=== PATIENT | female | born 1950 | race Caucasian/White ===

== ENCOUNTER 2023-04-20 11:53 | Outpatient (CLI) | payer MEDICARE, OTHER, SELFPAY | END 2023-04-20 11:54 | disposition home or self-care (01) | PROVIDERS: Visit Provider Registered Nurse | DX: R30.0 Dysuria (principal); N39.0 Urinary tract infection, site not specified; N30.01 Acute cystitis with hematuria | CPT/HCPCS: 87086; 87186 ==

== ENCOUNTER 2023-08-18 02:03 | Day surgery (SDC) | payer MEDICARE, OTHER, SELFPAY ==
[2023-08-18] VITALS (23 sets, daily range): BP systolic 93–167; BP diastolic 49–84; PULSE 69–94; RESP 14–20; TEMP 36.4–37.8; O2SAT 91–100; BMI 32.5
--- NOTE | 2023-08-18 02:32 | CRLHL7_ITS ---
For Patients: As a result of the Century Cures Act, medical imaging exams and procedure reports are released immediately into your electronic medical record. You may view this report before your referring provider. If you have questions, please contact your health care provider. INDICATION: Lower abdominal pain, suspect diverticulitis TECHNIQUE: CT abdomen and pelvis acquired with 108 cc Isovue 370 IV contrast. COMPARISON: None. FINDINGS: Lower chest: Partially visualized patchy and reticular opacities. Hepatobiliary: No acute abnormality appreciated. Spleen: Unremarkable. Pancreas: Unremarkable. Adrenal glands: Unremarkable. Kidneys: No acute parenchymal abnormality appreciated. No calculi. No hydronephrosis. Bowel: No obstruction. The appendix is dilated and hyperemic and demonstrates adjacent inflammatory stranding. No other focal perienteric or pericolonic stranding appreciated. Small hiatal hernia. Vascular: No acute abnormality appreciated. Lymph nodes: Prominent right lower quadrant nodes. Peritoneum: Small volume free fluid. No organized abscess. No free air. : No acute abnormality appreciated. Soft tissues: No acute abnormality appreciated. Bones: No acute abnormality appreciated. IMPRESSION: 1. Acute uncomplicated appendicitis. 2. Partially visualized patchy and reticular opacities in the lung bases. Findings may represent chronic scarring or fibrotic process, and correlation with any prior cross-sectional imaging of the chest would be recommended. If none is available, a CT of the chest when clinically appropriate may be considered for further evaluation. 3. Small hiatal hernia. Please note that all CT scans at this facility use dose modulation, iterative reconstruction, and/or weight-based dosing when appropriate to reduce radiation dose to as low as reasonably achievable. Dictated by Chris Thomson MD @ 08/18/2023 3:56:15 AM (Electronically Signed)
--- NOTE | 2023-08-18 02:36 | ED.GENADULT ---
HPI - General Adult General Chief complaint: Abdominal Pain Stated complaint: Abdominal Pain/Chest pain Time Seen by Provider: 08/18/23 02:05 Source: patient and family Mode of arrival: ambulatory Limitations: no limitations History of Present Illness HPI narrative: 73-year-old female presents the emergency department with a day and half of lower abdominal pain. Has a history of colitis, no prior abdominal surgeries. Reports pain is a little more in the suprapubic area, radiates right and left and superiorly as well. It is accompanied by nausea but no vomiting. No bloody stools. Reports her last colonoscopy was 3 years ago, normal. She is uncertain what type of colitis she has. She is visiting from [place] and we do not have access to her records. Denies any abdominal trauma, no pelvic pain. She is postmenopausal. Try taking some Tylenol yesterday afternoon which did temporarily improve her symptoms but no long-term relief. Tried taking some Pyridium this evening with no significant improvement. No dysuria. No hematuria, no history of kidney stones. No recent changes to medications. No prior history of similar symptoms. Past medical history notable for bipolar disorder and colitis. She is not a particularly good historian on this. I review her medications that come with her and I suspect she also has hypertension, she is on several mood stabilizers and antidepressants. She takes low-dose aspirin and also oral budesonide which is likely for her colitis. No prior abdominal surgeries, reports she is a nonsmoker. ROS is notable for the abdominal symptoms only, otherwise denies times 12 systems. Related Data Home Medications Medication Instructions Recorded Confirmed aspirin 81 mg tablet,delayed 81 mg PO QDAY 04/20/23 08/18/23 release (Adult Low Dose Aspirin) bisoprolol fumarate 5 mg tablet 5 mg PO DAILY 04/20/23 08/18/23 chlorhexidine gluconate 0.12 % PO 3XD PRN 04/20/23 07/30/23 mouthwash famotidine 40 mg tablet 40 mg PO DAILY 04/20/23 08/18/23 folic acid 1 mg tablet 1 - 2 mg PO DAILY 04/20/23 08/18/23 gabapentin 300 mg capsule 300 mg PO BID 04/20/23 08/18/23 hydrochlorothiazide 25 mg tablet 25 mg PO DAILY 04/20/23 08/18/23 olmesartan 20 mg tablet 20 mg PO DAILY 04/20/23 08/18/23 olmesartan 40 mg tablet 40 mg PO DAILY 04/20/23 08/18/23 potassium chloride 10 mEq 20 meq PO DAILY 04/20/23 08/18/23 tablet,extended release vilazodone 40 mg tablet 40 mg PO QAM 04/20/23 08/18/23 lurasidone 20 mg tablet 20 mg PO 07/30/23 07/30/23 Allergies Allergy/AdvReac Type Severity Reaction Status Date / Time Penicillins Allergy Intermediate Vomiting Verified 08/18/23 02:14 cefdinir Allergy Unknown Verified 08/18/23 02:14 Exam Const: Vital Signs, click to edit/add: Vital Signs - 24 hr 08/18/23 02:14 08/18/23 04:52 08/18/23 05:02 Temperature 100.1 F H Pulse Rate [Pulse Oximeter] 74 74 Respiratory Rate 20 20 Blood Pressure [Ri ght Upper Arm] 130/71 162/84 H Pulse Oximetry 94 94 94 Oxygen Delivery Me thod Room Air Nasal Cannula Nasal Cannula Oxygen Flow Rate 4 Documenting provider has reviewed patient's vital signs: yes Common normals: no apparent distress and alert General appearance: cooperative and well kempt Orientation/consciousness: Yes awake Other: Good historian. HENMT: Common normals: normocephalic Head and scalp: normocephalic Mouth: oral and palatal mucosa normal Throat: posterior oropharynx normal Eye: Common normals: conjunctivae normal General eye: normal appearance of both eyes Conjunctiva: conjunctiva(e) normal Neck & C-Spine: Common normals: full ROM and no lymphadenopathy Resp: Common normals: normal respiratory effort, no use of accessory muscles and clear to auscultation bilaterally Effort & inspection: able to speak in complete sentences Auscultation: clear to auscultation bilaterally Cardio: Common normals: regular rate, regular rhythm, S1 normal heart sound, S2 normal heart sound and no murmurs Rate: regular rate Rhythm: regular rhythm Heart sounds: S1 normal and S2 normal GI: Other: Bowel sounds are little hyperactive. Lower abdomen does seem slightly distended but I do not know her baseline. She is currently tender to palpation of the entire lower abdomen, not upper. Does exhibit some rebound tenderness, questionable guarding. No obvious mass. : Common normals: no CVA tenderness Bladder/kidney exam: no CVA tenderness Back & Pelvis: Common normals: no CVA tenderness Thoracic spine/upper back: normal to inspection Lumbar spine/lower back: normal to inspection Extremity: Common normals: normal to inspection and normal capillary refill Neuro: Sensorium/orientation: awake and alert Speech: speech normal Motor exam: no movement abnormalities noted Psych: Appearance: well kempt Attitude: engaged Activity/motor behavior: appropriate eye contact Mood and affect: euthymic mood Insight: insight good Judgement: judgment good Skin: Common normals: no rashes or lesions noted General skin exam: no rashes or lesions noted Course Course ED Course: Exquisite lower abdominal pain with history of colitis, fever, no signs of sepsis. Suspect diverticulitis, concern for significant intra-abdominal infection, obstruction or other intra-abdominal pathology. Differential diagnosis also including pancreatitis, complicated urinary tract infection, viral illness, among others. Recommend CT scan of the abdomen and pelvis, 1 L of IV fluid, Dilaudid and Zofran for symptom control. Basic labs. Await findings. Reevaluation(s) Time of Reevaluation #1: 04:13 Reevaluation #1: Reviewed findings with patient. CT shows acute appendicitis with no other significant abnormalities. No severe leukocytosis but inflammatory markers are a little elevated. I elected to do viral swabs because of the fever and she is COVID positive which I do not think explains her symptoms but it may be contributing to the fever. So with her general surgeon, operative intervention recommended. Will start ertapenem as antibiotic, maintenance fluids. P.r.n. pain medications ordered with anticipation of transfer to same-day surgery based on or availability this morning. Time of Reevaluation #2: 05:13 Reevaluation #2: EKG is reassuring. No signs of acute or chronic heart disease. Chest x-ray showing some mild central vascular congestion question chronic verses COVID related and acute. At this time I do still think that she is low risk for anesthesia and a surgical intervention is recommended, I would recommend that we proceed with appendectomy. Medically optimized at this time. Vital Signs Vital signs: Initial Vital Signs Temperature 100.1 F H 08/18/23 02:14 Temperature Source Temporal Artery Scan 08/18/23 02:14 Pulse Rate 74 08/18/23 02:14 Respiratory Rate 20 08/18/23 02:14 Blood Pressure 130/71 08/18/23 02:14 Blood Pressure Mean 90 08/18/23 02:14 Pulse Oximetry 94 08/18/23 02:14 Oxygen Delivery Method Room Air 08/18/23 02:14 Vital Signs Temperature 100.1 F H 08/18/23 02:14 Pulse Rate 74 08/18/23 02:14 Respiratory Rate 20 08/18/23 02:14 Blood Pressure 130/71 08/18/23 02:14 Pulse Oximetry 94 08/18/23 02:14 Oxygen Delivery Method Room Air 08/18/23 02:14 Temperature 100.1 F H 08/18/23 02:14 Pulse Rate 74 08/18/23 05:02 Respiratory Rate 20 08/18/23 05:02 Blood Pressure 162/84 H 08/18/23 05:02 Pulse Oximetry 94 08/18/23 05:02 Oxygen Delivery Method Nasal Cannula 08/18/23 05:02 Oxygen Flow Rate 4 08/18/23 04:52 Medications Administered Medications: Generic Name Dose Route Start Last Admin Trade Name Freq PRN Reason Stop Dose Admin Ertapenem 1 gm/ Sodium 100 mls @ 200 mls/hr 08/18/23 04:12 08/18/23 04:30 Chloride IVPB 08/18/23 04:13 200 mls/hr ONCE ONE Administration Lactated Ringer's 1,000 mls @ 125 mls/hr 08/18/23 04:15 08/18/23 04:59 Lactated Ringers 1000 Ml IV 125 mls/hr .Q8H ROX Administration Discontinued Medications Generic Name Dose Route Start Last Admin Trade Name Freq PRN Reason Stop Dose Admin Hydromorphone HCl 0.5 mg 08/18/23 02:32 08/18/23 02:45 Hydromorphone 0.5 Mg/0.5 Ml Inj IVP 08/18/23 02:33 0.5 mg ONCE ONE Administration Sodium Chloride 1,000 mls @ 1,000 mls/hr 08/18/23 02:34 08/18/23 04:21 0.9 % Sodium Chloride 1000 Ml IV 08/18/23 03:33 Infused .Q1H ROX Infusion Ondansetron HCl 4 mg 08/18/23 02:32 08/18/23 02:45 Ondansetron 2 Mg/Ml Inj IVP 08/18/23 02:33 4 mg ONCE ONE Administration Medical Decision Making Lab Data Lab results reviewed: Yes I reviewed the patient's lab results Lab results narrative: No obvious leukocytosis but left shift is present. Mild renal insufficiency, no electrolyte abnormalities. Moderate elevation of inflammatory markers, positive COVID Labs: Lab Results 08/18/23 08/18/23 Range/Units 02:10 02:45 WBC 10.62 (4.50-11.00) K/uL RBC 3.85 L (4.00-5.20) m/uL Hgb 12.0 (12.0-16.0) gm/dL Hct 37.6 (33.0-51.0) % MCV 98 (80-100) fL MCH 31 (26-34) pg MCHC 32 (32-36) gm/dL RDW Coeff of Jesus 14.1 (11.5-15.5) % Plt Count 209 (140-440) K/uL Neut % (Auto) 75.7 H (42.0-72.0) % Lymph % (Auto) 16.7 L (20-44) % Henderson % (Auto) 6.5 (0.0-11.0) % Eos % (Auto) 0.8 (0.0-7.0) % Baso % (Auto) 0.2 (0.0-3.0) % Neut # (Auto) 8.00 H (1.7-7.0) K/uL Lymph # (Auto) 1.80 (0.90-2.90) K/uL Henderson # (Auto) 0.70 (0.00-0.90) K/UL Eos # (Auto) 0.08 (0.00-0.50) K/uL Baso # (Auto) 0.02 (0.00-0.30) K/uL Abs Immat Gran (auto) 0.01 (0.00-0.30) K/uL Imm/Tot Granulo (auto) 0.1 % Sodium 139 (135-149) mmol/L Potassium 4.6 (3.6-5.1) mmol/L Chloride 108 (96-114) mmol/L Carbon Dioxide 24 (20-32) mmol/L Anion Gap 7 (7-15) mEq/L BUN 35 H (7-30) mg/dL Creatinine 1.5 (0.5-1.5) mg/dL Estimated Creat Clear 35.43 Estimated GFR 37 ml/min Glucose 125 H (60-115) mg/dL Lactate 1.0 (0.5-1.9) mmol/L Calcium 9.4 (8.4-10.6) mg/dL Total Bilirubin 0.8 (0.1-1.5) mg/dL AST 17 (12-35) U/L ALT 17 (4-35) U/L Alkaline Phosphatase 83 (40-150) U/L C-Reactive Protein 5.7 H (0.5-1.0) mg/dL Total Protein 6.8 (6.0-8.3) g/dL Albumin 3.8 (3.3-5.0) g/dL Lipase 88 (23-300) U/L SARS-CoV-2 (PCR) POSITIVE SARS-CoV-2 A (Negative) Influenza Type A (PCR) Negative PCR FLU A (Negative) Influenza Type B (PCR) Negative PCR FLU B (Negative) RSV (PCR) Negative PCR RSV (Negative) Imaging Data Chest x-ray: Attestation: I have reviewed the pertinent imaging results. My impression: Central vascular congestion. Cannot assess for cardiomegaly well on a portable film. No obvious effusion. Radiologist's impression: IMPRESSION: Cardiovascular and mediastinum: Mild cardiomegaly. Lungs and pleural spaces: Central vascular congestion and interstitial prominence which may represent mild interstitial edema or nonspecific infectious/inflammatory process. Mild bibasilar atelectasis. No sign of pleural effusion. No pneumothorax. Bones and soft tissues: No significant findings. CT scan - abdomen: Attestation: I have reviewed the pertinent imaging results. My impression: Appendicitis. No signs of obstruction or diverticulitis Radiologist's impression: IMPRESSION: 1. Acute uncomplicated appendicitis. 2. Partially visualized patchy and reticular opacities in the lung bases. Findings may represent chronic scarring or fibrotic process, and correlation with any prior cross-sectional imaging of the chest would be recommended. If none is available, a CT of the chest when clinically appropriate may be considered for further evaluation. 3. Small hiatal hernia. ECG Data Attestation: I personally reviewed and interpreted this ECG as follows: Interpretation: Normal sinus rhythm, rate in the 70s. Normal intervals and axis. Good R-wave progression. No ischemic changes. Normal EKG. Discharge Plan Discharge Clinical Impression: Acute appendicitis
[2023-08-18] MEDS: ONDANSETRON 2 MG/ML inj 4 MG IVP (02:45)
[2023-08-18] MEDS: 0.9 % SODIUM CHLORIDE 1000 ml 1,000 ML IV (02:45)
[2023-08-18] MEDS: HYDROmorphone 0.5 mg/0.5 ml inj IVP ×2 (02:45→05:46)
[2023-08-18 02:51] LABS: Basophils Absolute Auto 0.02 K/uL (0.00-0.30); Basophils Percent Auto 0.2 % (0.0-3.0); Eosinophils Absolute Auto 0.08 K/uL (0.00-0.50); Eosinophils Percent Auto 0.8 % (0.0-7.0); Hematocrit 37.6 % (33.0-51.0); Immature Granulocytes Abs Auto 0.01 K/uL (0.00-0.30); Immature Granulocytes Pct Auto 0.1 %; Lymphocytes Percent Auto 16.7 % (20-44); Mean Corpuscular HGB Conc 32 gm/dL (32-36); Mean Corpuscular Hemoglobin 31 pg (26-34); Mean Corpuscular Volume 98 fL (80-100); Monocytes Percent Auto 6.5 % (0.0-11.0); Neutrophils Percent Auto 75.7 % (42.0-72.0); Platelet Count* 209 K/uL (140-440); RDW Coefficient of Variation % 14.1 % (11.5-15.5); Red Blood Count 3.85 m/uL (4.00-5.20); White Blood Count* 10.62 K/uL (4.50-11.00)
[2023-08-18 02:53] LABS: Slide Review Reflex No
[2023-08-18 03:04] LABS: Chloride* 108 mmol/L (96-114); Sodium* 139 mmol/L (135-149)
[2023-08-18 03:05] LABS: Albumin* 3.8 g/dL (3.3-5.0); Potassium* 4.6 mmol/L (3.6-5.1)
[2023-08-18 03:08] LABS: PCR FLU A Negative PCR FLU A (Negative); PCR FLU B Negative PCR FLU B (Negative); PCR RSV Negative PCR RSV (Negative); SARS PCR* POSITIVE SARS-CoV-2 (Negative)
[2023-08-18 03:08] LABS: Alanine Aminotransferase* 17 U/L (4-35); Alkaline Phosphatase* 83 U/L (40-150); Anion Gap 7 mEq/L (7-15); Aspartate Amino Transferase* 17 U/L (12-35); Bilirubin Total* 0.8 mg/dL (0.1-1.5); Blood Urea Nitrogen* 35 mg/dL (7-30); Calcium* 9.4 mg/dL (8.4-10.6); Carbon Dioxide* 24 mmol/L (20-32); Creatinine* 1.5 mg/dL (0.5-1.5); Est. Creatinine Clearance* 35.43; Estimated Glomerular Filt Rate 37 ml/min; Glucose* 125 mg/dL (60-115); Lipase* 88 U/L (23-300); Total Protein* 6.8 g/dL (6.0-8.3)
[2023-08-18 03:11] LABS: C Reactive Protein* 5.7 mg/dL (0.5-1.0)
--- NOTE | 2023-08-18 04:17 | CRLHL7_ITS ---
For Patients: As a result of the Century Cures Act, medical imaging exams and procedure reports are released immediately into your electronic medical record. You may view this report before your referring provider. If you have questions, please contact your health care provider. INDICATION: Preoperative TECHNIQUE: Chest 1 views. COMPARISON: None. IMPRESSION: Cardiovascular and mediastinum: Mild cardiomegaly. Lungs and pleural spaces: Central vascular congestion and interstitial prominence which may represent mild interstitial edema or nonspecific infectious/inflammatory process. Mild bibasilar atelectasis. No sign of pleural effusion. No pneumothorax. Bones and soft tissues: No significant findings. Dictated by Avery Smith MD @ 08/18/2023 5:11:50 AM (Electronically Signed)
[2023-08-18] MEDS: ERTAPENEM 1 GM in 0.9 % SODIUM CHLORIDE Mini-bag 100 ML IVPB (04:30)
--- NOTE | 2023-08-18 04:52 | ED.NURSE ---
Report given to lyn MOON. patient going to 279
[2023-08-18] MEDS: LACTATED RINGERS 1000 ML 1,000 ML 125 ML IV (04:59)
[2023-08-18] MEDS: ACETAMINOPHEN 325 MG TABLET 650 MG PO ×2 (05:10→17:55)
[2023-08-18 05:52] LABS: Appearance Urine Clear (Clear); Bilirubin Urine Negative (Negative); Blood Urine Negative (Negative); Color Urine Orange (Yellow); Glucose Urine Trace (Negative); Ketones Urine Negative (Negative); Leukocyte Esterase Urine Negative (Negative); Nitrite Urine Positive (Negative); Protein Urine Trace (Negative)
[2023-08-18 06:03] LABS: RBC Urine 0-2 (0-2); Squamous Epithelial Cell Urine Few (None-Few); WBC Urine 0-2 (0-5)
--- NOTE | 2023-08-18 06:55 | PC.NURSE ---
pleasant and cooperative. SBA. son at bedside, he is helpful with pt cares. pt on 4L Oxymask after admin of dilaudid, when awake O2 sats are WNL.
[2023-08-18] MEDS: GABAPENTIN 300 MG CAPSULE PO ×2 (10:30→20:42)
--- NOTE | 2023-08-18 11:15 | P.GSHP_ITS ---
History of Present Illness History of Present Illness Date Seen: 08/25/23 Chief complaint: Abdominal Pain/Chest pain Narrative: Damaris Diaz is a 73 year old female who presented to the emergency department with right lower quadrant abdominal pain. She states that the pain started yesterday morning. She was able to eat breakfast without nausea or vomiting. Throughout the day the pain continued to worsen and she had a decrease in appetite. No fever at home, although a small fever was noted in the emergency department. She did have COVID in July but denies any current shortness of breath or cough. She has never had abdominal surgery before. Review of Systems Status of ROS: Reports: 10 or more systems reviewed and unremarkable except as noted in History and below Meds Home Medications and Allergies Home Medications Medication Instructions Recorded Confirmed Type aspirin 81 mg tablet,delayed 81 mg PO QDAY 04/20/23 08/18/23 History release (Adult Low Dose Aspirin) bisoprolol fumarate 5 mg tablet 5 mg PO DAILY 04/20/23 08/18/23 History chlorhexidine gluconate 0.12 % 15 ml PO 3XD PRN 04/20/23 08/18/23 History mouthwash famotidine 40 mg tablet 40 mg PO DAILY 04/20/23 08/18/23 History folic acid 1 mg tablet 1 - 2 mg PO DAILY 04/20/23 08/18/23 History gabapentin 300 mg capsule 300 mg PO BID 04/20/23 08/18/23 History hydrochlorothiazide 25 mg tablet 25 mg PO DAILY 04/20/23 08/18/23 History olmesartan 20 mg tablet 20 mg PO DAILY 04/20/23 08/18/23 History potassium chloride 10 mEq 20 meq PO DAILY 04/20/23 08/18/23 History tablet,extended release vilazodone 40 mg tablet 40 mg PO QAM 04/20/23 08/18/23 History lurasidone 20 mg tablet 20 mg PO DAILY 07/30/23 08/18/23 History budesonide 3 mg 3 mg PO DAILY 08/18/23 08/18/23 History capsule,delayed,extended release Allergies Allergy/AdvReac Type Severity Reaction Status Date / Time Penicillins Allergy Intermediate Vomiting Verified 08/18/23 02:14 cefdinir Allergy Unknown Verified 08/18/23 02:14 Exam Narrative: Exam Narrative: General: Alert and oriented, no acute distress. Nontoxic in appearance. Respiratory: 2 L face mask, equal breath rise bilaterally. Clear breath sounds CV: Regular rhythm rate, well perfused Abdomen: Soft, tender to palpation throughout lower abdomen with some guarding and rebound. Pain is most significant in the right lower quadrant. Const: Vital Signs, click to edit/add: Vital Signs - 24 hr 08/18/23 02:14 08/18/23 04:52 08/18/23 05:02 Temperature 100.1 F H Pulse Rate [Pulse Oximeter] 74 74 Respiratory Rate 20 20 Blood Pressure [Le ft Arm] Blood Pressure [Ri ght Upper Arm] 130/71 162/84 H Pulse Oximetry 94 94 94 Oxygen Delivery Me thod Room Air Nasal Cannula Nasal Cannula Oxygen Flow Rate 4 08/18/23 06:00 08/18/23 09:25 Temperature 99.1 F 98.8 F Pulse Rate [Pulse Oximeter] 81 Respiratory Rate 20 20 Blood Pressure [Le ft Arm] 167/81 H 93/49 L Blood Pressure [Ri ght Upper Arm] Pulse Oximetry 91 91 Oxygen Delivery Me thod OxyMask OxyMask Oxygen Flow Rate [address] scan report/results: report reviewed and image reviewed Progress Note:A&P Assessment and plan (1) Acute appendicitis: Status: Acute Assessment and Plan: The patient presented with a history, exam and imaging findings consistent with acute appendicitis. I discussed the treatment options with the patient including non-surgical and surgical options. I recommended laparoscopic appendectomy. The risks of surgery were reviewed with the patient including the risks of bleeding, post-operative wound or intra-abdominal infection, injury to abdominal structures and possible conversion to an open operation. We also discussed anesthetic complications including OH, stroke, respiratory failure and blood clots. The patient voiced an understanding of our conversation, had the opportunity to ask questions, agreed to accept the risks of surgery and asked that we proceed with surgery. Patient had a positive COVID via PCR. She is currently on droplet precautions, but will order a COVID antigen test. If the COVID antigen is negative patient w ill be okay to take off precautions.
[2023-08-18] MEDS: 0.9 % SODIUM CHLORIDE 1000 ml 1,000 ML 125 ML IV ×2 (11:40→20:42)
[2023-08-18] MEDS: LACTATED RINGERS 1000 ML 1,000 ML 35 ML IV (12:05)
[2023-08-18] MEDS: BUPIVACAINE 0.25% 30 ML INJECTION (12:09)
--- NOTE | 2023-08-18 12:25 | PM.GSPRC ---
Operative Note Date of procedure: 08/18/23 Pre-op diagnosis: Acute appendicitis Post-op diagnosis: Same, non perforated Type of Procedure: Laparoscopic appendectomy Indications: Patient is a 73-year-old female with clinical history workup consistent with acute appendicitis. Risks and benefits of operative intervention were discussed at length with the patient. Risks included but was not limited to: Bleeding, infection, risk of damage to surrounding structures, possible need for additional procedures, possible need to convert to an open operation and postoperative complications such as pneumonia, pulmonary emboli or CT. All questions and concerns were addressed with the patient agreeing to proceed. Procedure Description: After discussing the risks and benefits of the procedure, the patient signed informed consent.? The operative site was marked and the patient was brought to the operating room and placed on the operating table in supine position.? Care was taken to pad the patient's pressure points.?? The patient was then intubated by anesthesia.?? The operative site was then prepped and draped in the usual sterile fashion.? A time-out was then performed. Entrance to the abdomen was obtained via a 5 mm optical trocar in the left upper quadrant. The abdomen was insufflated and briefly surveyed for any signs of injury. There were none. A 12 mm port was placed lateral to the umbilicus as well as a 5 mm port in the left lower quadrant under direct vision. The patient was then placed in Trendelenburg position with the right side up. The small bowel was adherent to the appendix with a moderate amount fibrinous exudate. This was gently moved out of the way with adhesions bluntly dissected and the appendix was in view. A small amount of dissection was necessary to free the appendix from the surrounding pelvic attachments. This was grasped and pulled into view. There was a moderate amount of surrounding fibrinous material and murky fluid, consistent with phlegmon and early developing abscess. No obvious appendix perforation. A mesenteric window was created between the base of the appendix and the mesoappendix. A 45 mm Endo-KENDALL purple load stapler was then used to transect the appendix at its base. A 45 mm vascular load stapler was then used to take the mesoappendix. The staple lines were inspected for bleeding. There was none. The appendix was then removed from the abdomen using an Endo-Catch bag. The specimen was sent to pathology. The left lower quadrant 5 mm port had some muscular bleeding, this was cauterized with adequate hemostasis. The 12 mm port site fascia was closed with 0 Vicryl via the Kyle-Carlos. All ports removed under direct visualization. The skin was then closed with absorbable subcuticular suture. Sterile dressings were then applied. Instrument sponge and needle counts were correct at the end of the case. The patient was then woken and transported to the PACU in stable condition. Findings: Acute appendicitis, surrounding phlegmon with no obvious perforation. Anesthesia: GETA Surgeon: Harriet Aleman MD Estimated blood loss (mL): 10 Specimen: Appendix Condition: stable Disposition: PACU
--- NOTE | 2023-08-18 13:27 | P.ANES_ITS ---
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
--- NOTE | 2023-08-18 13:27 | W.ANESCHARGE ---
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
[2023-08-18] MEDS: OXYCODONE 5 MG TABLET PO (17:56)
[2023-08-18 19:29] LABS: SARS Antigen* Negative (Negative)
--- NOTE | 2023-08-18 19:52 | PC.NURSE ---
Prior to surgery this AM: Soft pressures- 90s/60s. 2L oxy mask w/ saturations in low to mid 90s. Lower abdominal pain of 5- tolerable per pt. Pt is sleepy. LS diminished in bases, otherwise clear. NPO. Voided x1. Last BM yesterday, 08/17. Son, Hari at bedside, involved in care. Down to surgery @ ~1100 for appendectemy. SARS antigen pending. Back from surgery 1310- requiring 5L oxy mask to maintain sats in low 90s, soft BPs, otherwise VSS. Denied pain. Sleepy. 1909- VSS, 1L NC. Abdominal pain of 5- PRN oxy & tylenol given x1. Tolerating regular diet- ate all of dinner, denies n/v. Voided x1. Up to bathroom using a walker & gaitbelt. Incisions x3- steristrips intact, 1 with scant dried drainage. Son's here this evening. Will continue to monitor, follow POC, and keep pt and family updated. Yaneli Cartagena RN
[2023-08-19] MEDS: ACETAMINOPHEN 325 MG TABLET 650 MG PO ×2 (00:05→08:57)
[2023-08-19] MEDS: IBUPROFEN 600 MG TABLET PO (00:06)
[2023-08-19 03:00] VITALS: BP 118/68; PULSE 59; RESP 16; TEMP 36.4; O2SAT 93
[2023-08-19] MEDS: ERTAPENEM 1 GM in 0.9 % SODIUM CHLORIDE Mini-bag 100 ML IVPB (04:46)
[2023-08-19] MEDS: 0.9 % SODIUM CHLORIDE 1000 ml 1,000 ML 125 ML IV (04:47)
--- NOTE | 2023-08-19 06:41 | PC.NURSE ---
pleasant and cooperative. DIL at bedside throughout shift. no c/o pain at end of shift, ice to abd. 3 lap sites with steri strips intact.
[2023-08-19 07:00] VITALS: BP 150/79; PULSE 61; RESP 16; TEMP 36.2; O2SAT 97
[2023-08-19] MEDS: GABAPENTIN 300 MG CAPSULE PO (08:54)
--- NOTE | 2023-08-19 13:41 | PM.DS1 ---
DS: Providers Provider Date Seen: 08/19/23 Primary care physician: Not a Local Provider Attending Physician on discharge: Harriet Aleman MD DS: Summary Hospital Course Hospital Course: Patient presented to the emergency department with clinical exam and workup consistent with acute appendicitis. She was taken to the operating room for laparoscopic appendectomy. There was evidence of a phlegmon, but no obvious perforation of the appendix. On postop day 1 patient had pain well controlled with oral medications, was tolerating regular diet and ambulating independently. She initially was on nasal cannula postoperatively, but able to wean to room air. Given the findings intraoperatively she was continued on IV antibiotics while inpatient then transition to oral to complete a 7 day course. Patient was discharged to home with plan for follow-up in 2 weeks. Time Spent with Patient Time attestation: Total time spent providing and/or coordinating discharge services: Exam Narrative: Exam Narrative: General: Alert and oriented, no acute distress Abdomen: Soft, appropriately tender over incision sites with Steri-Strips in place clean/dry/intact Const: Vital Signs, click to edit/add: Vital Signs - 24 hr 08/18/23 14:05 08/18/23 14:35 08/18/23 15:05 Temperature 99.2 F 98.5 F Pulse Rate [Pulse Oximeter] 73 71 69 Respiratory Rate 16 16 16 Blood Pressure [Le ft Arm] 103/57 L 108/56 L 103/54 L Pulse Oximetry 94 93 96 Oxygen Delivery Me thod OxyMask OxyMask OxyMask Oxygen Flow Rate 5 5 5 08/18/23 16:00 08/18/23 17:00 08/18/23 18:10 Temperature 98.3 F 97.8 F Pulse Rate [Pulse Oximeter] 72 83 81 Respiratory Rate 16 16 16 Blood Pressure [Le ft Arm] 101/71 101/52 L 104/58 L Pulse Oximetry 92 94 93 Oxygen Delivery Me thod OxyMask Room Air Oxygen Flow Rate 4 08/18/23 19:00 08/18/23 23:00 08/18/23 23:00 Temperature 97.5 F L 97.6 F Pulse Rate [Pulse Oximeter] 94 75 Respiratory Rate 16 16 16 Blood Pressure [Le ft Arm] 99/50 L 112/69 Pulse Oximetry 92 93 Oxygen Delivery Me thod Nasal Cannula Nasal Cannula Oxygen Flow Rate 1 1 08/19/23 03:00 08/19/23 07:00 Temperature 97.6 F 97.1 F L Pulse Rate [Pulse Oximeter] 59 L 61 Respiratory Rate 16 16 Blood Pressure [Le ft Arm] 118/68 150/79 H Pulse Oximetry 93 97 Oxygen Delivery Me thod Nasal Cannula Room Air Oxygen Flow Rate 1 DS: Data Data Completed and Pending Labs on day of discharge: Labs from last 24 hours 08/18/23 17:45 SARS-CoV-2 Ag (Rapid) Negative Preliminary micro results at discharge 08/18/23 Unknown Urine Culture - Preliminary Urine,Clean Catch < 50,000 COL/ML MIXED GRAM POSITIVE KIP ISOLATED NO FURTHER WORKUP Discharge Plan Discharge Disposition: Home, Self-Care Discharging Surgeon: Harriet Aleman Follow-Up Appointment: 2 week follow up Prescriptions: New oxycodone 5 mg tablet 5 mg PO Q6H PRN (Reason: pain) Qty: 10 0RF senna 8.6 mg capsule 8.6 mg PO DAILY PRN (Reason: constipation) Qty: 90 0RF ciprofloxacin HCl [Cipro] 500 mg tablet 500 mg PO BID Qty: 10 0RF metronidazole 500 mg tablet 500 mg PO Q8H Qty: 15 0RF Continued famotidine 40 mg tablet 40 mg PO DAILY olmesartan 20 mg tablet 20 mg PO DAILY chlorhexidine gluconate 0.12 % mouthwash 15 ml PO 3XD PRN bisoprolol fumarate 5 mg tablet 5 mg PO DAILY hydrochlorothiazide 25 mg tablet 25 mg PO DAILY potassium chloride 10 mEq tablet extended release 20 meq PO DAILY vilazodone 40 mg tablet 40 mg PO QAM gabapentin 300 mg capsule 300 mg PO BID folic acid 1 mg tablet 1 - 2 mg PO DAILY aspirin [Adult Low Dose Aspirin] 81 mg tablet,delayed release (DR/EC) 81 mg PO QDAY lurasidone 20 mg tablet 20 mg PO DAILY budesonide 3 mg capsule,delayed,extend.release 3 mg PO DAILY Activity Level: Activity as Tolerated Activity Detail: Activity as tolerated. Avoid strenuous activity. No lifting greater than 20 lb for 2 weeks. Discharge Diet: Regular Patient Instructions: Ciprofloxacin (By mouth), Laxative, Stimulant (By mouth), Metronidazole (By mouth), Oxycodone, Rapid Release (By mouth), Post-Operative Instructions: Appendectomy Additional Instructions: You were prescribed a narcotic pain medication. In addition you may supplement with Tylenol and/or ibuprofen. Be sure to not exceed greater than 4 g of Tylenol in a 24 hour period. While on narcotic pain medicine please take stool softeners. A prescription of stool softeners has been sent to the pharmacy. Stop if having greater than 2 stools per day. A course of antibiotics has also been sent to pharmacy, to be completed for 5 additional days. You can start showering today. Do not soak in a bath or swim for 2 weeks. Allow Steri-Strips to fall off on their own. An appointment will be made for you to follow-up in clinic with Dr. Aleman here at [facility]. Please come in to be seen sooner or present to the emergency department with any increasing abdominal pain, fever, nausea or vomiting. Forms: Work/School Release Follow-up: Harriet Aleman MD [Staff Physician] - Jessy Vences MD [Staff Physician] - 09/01/23 11:15 am ([facility] for follow-up.) Provider,Not a Local [Primary Care Provider] - Discharge Orders: Discharge Order (Routine); Ordered 08/19/23 Ordered By: Harriet Aleman
== END 2023-08-19 12:15 | disposition home or self-care (01) ==
LOC: ED 02:52 → OR 05:01 → MEDSURG 05:02
PROVIDERS: Emergency Provider Family Medicine; Visit Provider Surgery
PROC: 0DTJ4ZZ Resection of Appendix, Percutaneous Endoscopic Approach (ICD-10-PCS; CPT 44970; principal; 2023-08-18 11:00)
DX: K35.80 Unspecified acute appendicitis (principal); U07.1 COVID-19; I51.7 Cardiomegaly; R10.30 Lower abdominal pain, unspecified
CPT/HCPCS: 44970; 00840; 36415; 71045; 74177; 80053; 81003; 81015; 83605; 83690; 85025; 86140; 87086; 87426; 87631; 88304; 93005; 99100; 99140; 99284; 99285; A9270; J0330; J0665; J1100; J1170; J1335; J1885; J2371; J2405; J2704; J3010; J3490; J7030; J7120; Q9967

== ENCOUNTER 2023-10-25 10:07 | Emergency (ER) | payer MEDICARE, OTHER, SELFPAY ==
--- NOTE | 2023-10-25 | US_ITS ---
Patient: MAGDALENA RUSSO Facility:?[facility] Patient ID:?[id number] Site Patient ID:?[id number]. Site :?[id number] Study:?US-Extremity Left LEV-10/25/2023 1:46:53 PM Ordering Physician:ANNITA DOCKERY Final Report: INDICATION: Leg swelling. TECHNIQUE: Ultrasound venous duplex lower left extremity. Compression venous exam was performed using santizo-scale, color Doppler, and spectral Doppler analysis. COMPARISON: None available. FINDINGS: Deep veins: Sonographic imaging demonstrates the left common femoral, deep femoral, superficial femoral, popliteal, posterior tibial, peroneal and the contralateral right common femoral veins to be fully compressible with normal color Doppler blood flow. Superficial veins: Visualized portions of the greater saphenous vein are fully compressible. IMPRESSION: Normal left lower extremity venous ultrasound, no sign of deep venous thrombosis. Dictated by Celina Gregory MD @ 10/25/2023 1:54:59 PM Signed by:?Celina Gregory MD @10/25/2023 1:54:59 PM (Electronic Signature)
[2023-10-25 10:11] VITALS: BP 142/87; PULSE 67; RESP 18; TEMP 36.1; O2SAT 98; BMI 31.9
--- NOTE | 2023-10-25 12:49 | XR_ITS ---
Patient: MAGDALENA RUSSO Facility:?[facility] Patient ID:?[id number] Site Patient ID:?[id number]. Site :?[id number] Study:?XRay-Extremity Left ANKLE 3 VIEWS-10/25/2023 2:09:02 PM Ordering Physician:GRECIA Final Report: Indication: Fall, swelling with malleolar pain Comparison: None available. Technique: AP, Lateral, and Oblique views left ankle were obtained Findings: There is no displaced fracture or dislocation. The ankle mortise is symmetrical. The talar dome is smooth and intact. There is extensive enthesopathic change at the insertion of the Achilles tendon. There is [id number] malleolar soft tissue swelling. Impression: Extensive enthesopathic change at the insertion of the Achilles tendon. [id number] malleolar soft tissue swelling without evidence of displaced fracture. Dictated by Nathen Mitchell MD @ 10/25/2023 2:35:46 PM Signed by:?Nathen Mitchell MD @10/25/2023 2:35:46 PM (Electronic Signature)
--- OUTSIDE RECORDS SUMMARY | 2023-10-25 12:56 | XMS_ITS | Continuity of Care Document ---
Author Name Unknown Organization [facility] Address [address] [place] [address] Phone Care Team Providers Care Tie Knitter Helper Name Role Phone No Information Unavailable Unavailable Medications Medication Instructions Dosage Effective Dates (start - stop) Status Comments CENTRUM SILVER (unknown strength) Take as directed Not Available - Active Motrin IB 200 mg Tab Take as directed - Active GlycoLax 17 gram/dose Oral Powder Take as directed - Active Oxycodone 5 mg Cap Take as directed - Acti ve Nexium 40 mg Cap Take as directed - Active Vesicare 5 mg Tab 1 by mouth daily - Activ e Neurontin 600 mg Tab Use as directed by prescribing physician - Active Procedures Procedure Date Established Patient-problem Focused Mri Spine/lumb W/o Contrast New Patient-detailed Advance Directives Directive Yes / No Effective Date File Name No Information Encounters Encounter Description Practice Location Reason(s) For Visit Diagnoses Date Provider Providers Copied on Encounter [facility], [address] [place] [address], [id number], tel:[phone] No Information No Information Established Patient-prob kelly Focused [facility], [address] [place] [address], [id number], tel:[phone] [facility] No Information Beatrice FIELD [facility]. [address] [place] [address], [id number], . tel:[phone] Referring Provider: Yemi Appiah, [facility] [address], [place], [address]. tel:[phone] [facility], [address] [place] [address], [id number], tel:[phone] [facility] Office No Information 7 Beatrice Shen. [address] [place] [address], [id number], . tel:[phone] Referring Provider: Yemi Appiah, [facility] [address], [facility]. tel:[phone] New Patient-detkeegan godfrey [facility], [address] [place] [address], [id number], tel:[phone] [facility] Office No Information 7 Yesenia Barnett. [address] [place] [address], [id number], . tel:[phone] Referring Provider: Yemi Appiah, [facility] [address], [facility]. tel:[phone] Family History Family Member Type Diagnosis Age At Onset No Information Payers Payer name Insurance type Covered constitution party ID Authoriza tion(s) Medicare [facility] [id number] Social History Type Description Quantity Date Captured Comments Sex Female Smoking Status No Information Chief Complaint And Reason For Visit No Information Reason For Referral Reason For Referral No Information History Of Present Illness Encounter Date Complaint History Of Prese nt Illness No Information Functional Status Date Functional Assessmen t No Information Instructions Date Instruction Additional Infor mation No Information Assessments Type Assessment Date No Information Patient Care Teams Name Effective Dates (start - stop) Status Members No Information
--- OUTSIDE RECORDS SUMMARY | 2023-10-25 12:56 | XMS_ITS | Encounter Summary ---
Author Name Unknown Organization [facility] Address [address] [place] [address] Care Team Providers Care Staker Surveying Name Role Phone Dung Arizmendi MD Unavailable [phone] Uriel Armas MD Unavailable [phone] Walter Reid MD Primary Care Provider [phone] Encounter Details Date Type Department Care Team (Latest Contact Info) Description 04/30/2023 Lab Requisition [facility] [address] [place] [address] Travis Colon, [employer] [address] [place] [address] Unspecified symptoms and signs involving the genitourinary system Social History Tobacco Use Types Packs/Day Years Used Date Smoking Tobacco: Never Smokeless Tobacco: Never Alcohol Use Standard Drinks/Week Comments No 0 (1 standard drink = 0.6 oz pur e alcohol) Sex and Gender Information Value Date Recorded Sex Assigned at Female 11/24/2021 1:44 PM EDT Gender Identity Female 11/24/2021 1:44 PM EDT Sexual Orientation Straight 12/30/2022 8: 57 AM EDT documented as of this encounter Functional Status Functional Status Response Date of Assess ment Because of physical, mental, or emotional condition, do you have difficulty doing errands alone such as visiting a doctor's office or shopping? No 11/25/2021 documented as of this encounter Plan of Treatment Upcoming Encounters Date Type Department Care Team (Late st Contact Info) Description 01/24/2024 9:00 AM EDT Appointment [facility] Radiology Department [address] [place] [phone] 01/24/2024 12:40 PM EDT Office Visit [facility] [place] [address] [place] [phone] Philomena Granados PA [address] [place] [address] documented as of this encounter Procedures Procedure Name Priority Date/Time Associated Diagnosis Comments URINE CULTURE AND SENSITIVITY STAT 04/30/2023 2:20 PM EDT Unspecified symptoms and signs involving the genitourinary system documented in this encounter Results * (ABNORMAL) Urine Culture and Sensitivity (04/30/2023 2:20 PM EDT) Culture ESCHERICHIA COLI(A) [place] 05/02/2023 10:23 AM EDT [facility] Urine OTHER / Unknown 04/30/2023 2 :20 PM EDT 04/30/2023 7:41 PM EDT Narrative Organism Antibiotic Method Susceptibility Escherichia coli Ampicillin [place] 4 ug/mL: Susceptible Escherichia coli Ampicillin + Sulbactam [place] <=2 ug/mL: Susceptible Escherichia coli Cefazolin [place] <=4 ug/mL: Susceptible Escherichia coli Cefepime [place] <=1 ug/mL: Susceptible Escherichia coli Ceftriaxone [place] <=1 ug/mL: Susceptible Escherichia coli Ertapenem [place] <=0.5 ug/mL: Susceptible Escherichia coli Extended Spectrum Beta Lactamase [place] Negative ug/mL Escherichia coli Gentamicin [place] <=1 ug/mL: Susceptible Escherichia coli Levofloxacin [place] <=0.12 ug/mL: Susceptible Escherichia coli Meropenem [place] <=0.25 ug/mL: Susceptible Escherichia coli Nitrofurantoin [place] <=16 ug/mL: Susceptible Escherichia coli Piperacillin + Tazobactam [place] <=4 ug/mL: Susceptible Escherichia coli Tigecycline [place] <=0.5 ug/mL: Susceptible Escherichia coli Tobramycin [place] <=1 ug/mL: Susceptible Escherichia coli Trimethoprim + Sulfamethoxazole [place] <=20 ug/mL: Susceptible M Desi Colon [facility] MICROBIOLOGY - GENERAL ORDERABLES [facility] Medical Director: Misael Isaacs M.D. [address] [place] [phone] documented in this encounter Visit Diagnoses Diagnosis Unspecified symptoms and signs involving the genitourinary system documented in this encounter Care Teams Staker Surveying Relationship Specialty Start Date End Date Walter Reid MD [address] [place] [phone] PCP - General Internal Medicine 09/06/20 Dung Arizmendi MD [address] [place] [phone] Consulting Physician Cardiology 10/06/13 Uriel Armas MD [address] [place] [phone] Consulting Physician Urology 08/30/18 documented as of this encounter
--- OUTSIDE RECORDS SUMMARY | 2023-10-25 12:56 | XMS_ITS | Encounter Summary ---
Author Name Unknown Organization [facility] Address [address] [facility] [place] [address] Care Team Providers Care Filter Press Supervisor Name Role Phone Dung Arizmendi MD Unavailable [phone] Uriel Armas MD Unavailable [phone] Walter Reid MD Primary Care Provider [phone] Encounter Details Date Type Department Care Team (Latest Contact Info) Description 09/21/2023 Lab Requisition [facility] [address] [place] [address] Walter Reid MD [address] [place] [address] Unspecified symptoms and signs involving the genitourinary [...] Info) Description 01/24/2024 9:00 AM EDT Appointment [facility] Radiology Department [address] [place] [address] 01/24/2024 12:40 PM EDT Office Visit [facility] [address] [place] [phone] Philomena Granados PA [address] [place] [address] documented as of this encounter Procedures Procedure Name Priority Date/Time Associated Diagnosis Comments URINE CULTURE AND SENSITIVITY Today 09/21/2023 11:14 AM EDT Unspecified symptoms and signs involving the genitourinary system documented in this encounter Results * (ABNORMAL) Urine Culture and Sensitivity (09/21/2023 11:14 AM EDT) Culture KLEBSIELLA PNEUMONIAE(A) [place] 09/23/2023 1:48 PM EDT [facility] Urine 09/21/2023 11:1 4 AM EDT 09/21/2023 4:31 PM EDT Narrative Organism Antibiotic Method Susceptibility Klebsiella pneumoniae Ampicillin + Sulbactam [place] 16.0 ug/mL: Intermediate Klebsiella pneumoniae Cefazolin [place] <=4.0 ug/mL: Susceptible Klebsiella pneumoniae Cefepime [place] <=1.0 ug/mL: Susceptible Klebsiella pneumoniae Ceftriaxone [place] <=1.0 ug/mL: Susceptible Klebsiella pneumoniae Ertapenem [place] <=0.5 ug/mL: Susceptible Klebsiella pneumoniae Extended Spectrum Beta Lactamase [place] Negative ug/mL Klebsiella pneumoniae Gentamicin [place] <=1.0 ug/mL: Susceptible Klebsiella pneumoniae Levofloxacin [place] <=0.12 ug/mL: Susceptible Klebsiella pneumoniae Meropenem [place] <=0.25 ug/mL: Susceptible Klebsiella pneumoniae Nitrofurantoin [place] 128.0 ug/mL: Resistant Klebsiella pneumoniae Piperacillin + Tazobactam [place] 8.0 ug/mL: Susceptible Klebsiella pneumoniae Tigecycline [place] 2.0 ug/mL: Susceptible Klebsiella pneumoniae Tobramycin [place] <=1.0 ug/mL: Susceptible Klebsiella pneumoniae Trimethoprim + Sulfamethoxazole [place] <=20.0 ug/mL: Susceptible Walter Reid MD MICROBIOLOGY - GENER AL ORDERABLES Performing Organization Address [facility]/State/ZIP Co de Phone Number [facility] Medical Director: Misael Isaacs M.D. [address] [place] [phone] documented in this encounter Visit Diagnoses Diagnosis Unspecified symptoms and signs involving the genitourinary system documented in this encounter Care Teams Filter Press Supervisor Relationship Specialty Start Date End Date Walter Reid MD [address] [place] [phone] PCP - General Internal Medicine 09/06/20 Dung Arizmendi MD [address] [place] [address] Consulting Physician Cardiology 10/06/13 Uriel Armas MD [address] [place] [address] Consulting Physician Urology 08/30/18 documented as of this encounter
--- OUTSIDE RECORDS SUMMARY | 2023-10-25 12:56 | XMS_ITS | Clinical Summary ---
Author Name Unknown Organization [employer] Address [address] [place] [address] Care Team Providers Care Supervisor Rolling Room Name Role Phone Dung Arizmendi MD Unavailable [phone] Uriel Amras MD Unavailable [phone] Walter Reid MD Primary Care Provider [phone] Allergies Active Allergy Reactions Criticality Noted Date Comments Amoxicillin Nausea And Vomiting 11/24/2021 Cefdinir 01/16/2022 vomitting Medications Medication Sig Dispensed Refills Start Date End Date Status Flaxseed, Linseed, (FLAXSEED OIL) 1000 MG CAPS take 1 by Oral route every day 05/11/2013 Active gabapentin (Neurontin) 300 MG capsule Take 300 mg by mouth daily. 05/11/2013 Active lamoTRIgine (LAMICTAL) 150 MG tablet take 1 tablet by oral route every day 05/11/2013 Active pantoprazole (PROTONIX) 40 MG tablet Take 40 mg by mouth 2 (two) times a day. 05/11/2013 Active spironolactone (ALDACTONE) 25 MG tablet Take 25 mg by mouth daily. Active potassium chloride sa (K-DUR,KLOR-CON) 10 MEQ tablet Take 10 mEq by mouth 2 (two) times a day. Active conjugated estrogens (PREMARIN) vaginal cream Place vaginally 2 (two) times a week. Active Elastic Bandages & Supports (MEDICAL COMPRESSION STOCKINGS) MiscIndications:Spide r veins 20-30 each by Does not apply route daily. 2 each 1 08/25/2016 Active cycloSPORINE (RESTASIS) 0.05 % ophthalmic emulsion 1 drop 2 (two) times a day. Active vilazodone (VIIBRYD) 40 MG Tab Take 20 mg by mouth daily with breakfast. Active colchicine 0.6 MG tablet Take 0.6 mg by mouth daily. Active allopurinol (Zyloprim) 300 MG tablet Take 300 mg by mouth daily. Active solifenacin (Vesicare) 5 MG tablet Take 5 mg by mouth daily. 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 CTA-Right renal artery aneurysm measuring up to 9 mm diameter. 12/14/18 Chest pain 10/06/2013 Overview: ?? Echo 09/01/13 ?? MPI 09/01/13: EF 70%. Normal. ?? Cath 09/28/13: EF 65%. Normal coronaries. 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 Venous duplex 06/14/13: varicosities BLE w/ reflux L GSV. ?? 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 Dysuria 09/21/2023 Lab Requisition [facility] [address] [place] [address] Walter Reid MD Unspecified symptoms and signs involving the genitourinary system from Last 3 Months Family History Medical History Relation Name Comments Varicose/Spider Veins Maternal Grandmother Breast cancer Neg Hx Relation Name Status Comments Father Maternal Grandmother Mother Social History Tobacco Use Types Packs/Day Years Used Date Smoking Tobacco: Never Smokeless Tobacco: Never Alcohol Use Standard Drinks/Week Comments No 0 (1 standard drink = 0.6 oz pur e alcohol) Sex and Gender Information Value Date Recorded Sex Assigned at Female 11/24/2021 1:44 PM EDT Gender Identity Female 11/24/2021 1:44 PM EDT Sexual Orientation Straight 12/30/2022 8: 57 AM EDT Last Filed Vital Signs Vital Sign Reading Time Taken Comments Blood Pressure 122/70 01/16/2022 1:55 PM EDT Pulse 80 01/16/2022 1:55 PM EDT Temperature 36.3 ??C (97.4 ??F) 11/26/2021 4:00 PM ED T Respiratory Rate 20 01/16/2022 1:55 PM EDT Oxygen Saturation 97% 11/26/2021 4:00 PM EDT Inhaled Oxygen Concentration - - Weight 95.9 kg (211 lb 6.4 oz) 01/16/2022 1:55 P M EDT Height 175.3 cm (5' 9) 01/16/2022 1:55 PM EDT Body Mass Index 31.22 01/16/2022 1:55 PM EDT Plan of Treatment Upcoming Encounters Date Type Department Care Team (Late st Contact Info) Description 01/24/2024 9:00 AM EDT [place]ointment [facility] [place] [address] [place] [phone] 01/24/2024 12:40 PM EDT Office Visit [facility] [address] [place] [phone] Philomena Granados, AJ [address] [place] [address] Health Maintenance Due Date Last Done Comments CT Colonography 1950 Cologuard 1950 Colonoscopy 1950 Colorectal Cancer Screening 1950 Fecal Occult Blood Test(FOBT) 1950 Lipid Panel 1950 Medicare Annual Wellness Visit 1950 Sigmoidoscopy 1950 Depression Screening PHQ-2 o r PHQ-9 1963 Fall Risk Screening 01/21/2016 DXA SCAN 05/16/2016 05/16/2014, 05/09/2010 PNEUMOCOCCAL VACCINE 65yrs+ (2 of 2 - PPSV23 or PCV20) 05/31/2020 04/05/2020, 07/26/2017, 05/28/2016 Mammogram 09/06/2022 09/06/2020, 02/0 03/2017, 06/27/2015, Additional history exists Covid 19 Vaccine Series ( season) 2023 09/12/2021, 06/27/2021, 03/11/2021, Additional history exists Influenza Vaccine (#1) 2023 , 07/04/2019, 06/30/2018, Additional history exists Procedures Procedure Name Priority Date/Time Associated Diagnosis Comments URINE CULTURE AND SENSITIVITY STAT 10/15/2023 11:38 AM EDT Dysuria URINE CULTURE AND SENSITIVITY Today 09/21/2023 11:14 AM EDT Unspecified symptoms and signs involving the genitourinary system MAMMO SCREENING BILATERAL W JEISON INCL CAD Routine 09/06/2020 1:32 PM EST Breast cancer screening by mammogram DXA BONE DENSITY SPINE AND HIP Routine 05/16/2014 1:05 PM EST from Last 3 Months or Most Recently Relevant to Health Maintenance Results * Urine Culture and Sensitivity (10/15/2023 11:38 AM EDT) Only the most recent of2 resultswithin the time period is included. 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 [address] [place] [phone] * (ABNORMAL) Mammo Screening Bilateral W Jeison Incl CAD (09/06/2020 1:32 PM EST) Anatomical Region Laterality Modality Breast Bilateral Mammography Impressions 09/07/2020 11:51 AM EST IMPRESSION: ASSESSMENT is BI-RADS CATEGORY 0: ??INCOMPLETE. ??NEED ADDITIONAL IMAGING EVALUATION. Additional images for evaluation. MANAGEMENT RECOMMENDATION: Further imaging. Ultrasound and possible additional spot compression views of the right breast. Within the next week, [email or web address] will mail a standard letter to the patient at the address provided during registration indicating the results of this examination. One month prior to the recommended follow up, a standard reminder letter will be mailed to the patient's provided mailing address. WSN: ?? [id number] Narrative 09/07/2020 11:51 AM EST MAMMO SCREENING BILATERAL W JEISON INCL CAD REASON FOR EXAMINATION: screening. LIFETIME RISK ASSESSMENT: Utilizing the Nita model the patient's lifetime risk of breast cancer was calculated. Her lifetime risk to the age of 90 is 3.9%. 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 COMPARISON: ??04/13/2019, 11/26/2017 FINDINGS: This examination was reviewed with computer aided detection. 2-D and 3-D Tomosynthesis images were reviewed. The breasts are almost entirely fatty (Category A). Question of developing density in the upper outer posterior right breast. There are no additional suspicious masses or microcalcifications in either breast. ?? Colleen Grullon MD IMG MAMMOGRAPHY FUNMILAYO LEUNG * Dxa Bone Density Spine And Hip (05/16/2014 1:05 PM EST) Anatomical Region Laterality Modality Bone Radiographic Ashlyn ging 03/06/2014 2:15 PM EDT Narrative 05/16/2014 1:16 PM EST ? [facility] ? Final Report Ordering Clinician: ([id number]) Miriam KHAN MD CI #: [id number] ? Med Rec #: [id number] ? Class: O PROCEDURE: ??WMA ?? 0958 ??- ??DEXA BONE DENSITY STUDY ACCESSION NO: ??[id number] DATE OF EXAM: ??May ??2013 ??1:05PM ??BEATRICE ORDER NO: [id number] CPT(s): 80259 ADMITTING DIAGNOSIS: SYMPT FE MENOPAUSE SCREEN MAMM REASON FOR EXAM: Symptomatic Menopausal 627.2 RESULT: INDICATION: ?Postmenopausal screening. TECHNIQUE: Dual energy x-ray densitometry for bone mineral density was performed. ?? Density measurements of L1, L2, L3, L4, and in two regions of the proximal femora bilaterally were obtained and are listed on the attached form. ??These measurements are compared to young normal values also noted on the attached form. FINDINGS: A copy of the analysis is being sent to your office. Bone densities in the lumbar spine are normal with average T score of -0.9. Bone densities in both femoral neck regions are normal with T score of -0.7 in the right femoral neck and of -0.8 in the left femoral neck. Vertebral fracture assessment: Lateral view obtained at DEXA examination demonstrates no osteoporotic compression deformities. Osteophyte formation is noted at the L3-4 level of the lumbar spine and may slightly artificially elevate measured densities of L3 on L4. IMPRESSION: See above. WSN: [id number] Technologist: RT Zachariah(Lilliana)(M) Supervisor Plastics: [employer]vel[employer]ribalee Transcribe Date/Time: May ??2013 ??1:12PM Read By: Karo SANON MD on May ??2013 ??1:12PM Signed by: Karo SANON MD on May ??2013 ??1:13PM Procedure Note Provider, MD Chrissy - 11/02/2019 [facility] Final Report Ordering Clinician: ([id number]) Miriam KHAN MD CI #: [id number] Med Rec #: [id number] Class: O PROCEDURE: WMA 0958 - DEXA BONE DENSITY STUDY ACCESSION NO: [id number] DATE OF EXAM: May 16 2014 1:05PM BEATRICE ORDER NO: [id number] CPT(s): 48694 ADMITTING DIAGNOSIS: SYMPT FE MENOPAUSE SCREEN MAMM REASON FOR EXAM: Symptomatic Menopausal 627.2 RESULT: INDICATION: Postmenopausal screening. TECHNIQUE: Dual energy x-ray densitometry for bone mineral density was performed. Density measurements of L1, L2, L3, L4, and in two regions of the proximal femora bilaterally were obtained and are listed on the attached form. These measurements are compared to young normal values also noted on the attached form. FINDINGS: A copy of the analysis is being sent to your office. Bone densities in the lumbar spine are normal with average T score of -0.9. Bone densities in both femoral neck regions are normal with T score of -0.7 in the right femoral neck and of -0.8 in the left femoral neck. Vertebral fracture assessment: Lateral view obtained at DEXA examination demonstrates no osteoporotic compression deformities. Osteophyte formation is noted at the L3-4 level of the lumbar spine and may slightly artificially elevate measured densities of L3 on L4. IMPRESSION: See above. WSN: [id number] Technologist: RT Zachariah(Lilliana)(M) Supervisor Plastics: [employer] Transcribe Date/Time: May 16 2014 1:12PM Read By: Karo SANON MD on May 16 2014 1:12PM Signed by: Karo SANON MD on May 16 2014 1:13PM Historical Provider IMG DXA ORDERABLE S from Last 3 Months or Most Recently Relevant to Health Maintenance Advance Directives Documents on File Type Date Recorded Patient Talent Development Manager Expl anation Advance Directive(s) and Pat ient Rights Information 11/24/2021 2:34 PM Advance Directive(s) and Pat ient Rights Information 11/08/2015 HOD - Advance Directives and Living Will 09/05/2015 9:33 AM Advance Directive(s) and Pat ient Rights Information 12/30/2022 Advance Directive(s) and Pat ient Rights Information 12/21/2022 Advance Directive(s) and Pat ient Rights Information 08/29/2021 Advance Directive(s) and Pat ient Rights Information 03/21/2021 HOD - Advance Directives and Living Will 09/18/2020 HOD - Advance Directives and Living Will 09/06/2020 Advance Directive(s) and Pat ient Rights Information 04/15/2020 HOD - Advance Directives and Living Will 05/26/2019 Advance Directive(s) and Pat ient Rights Information 12/14/2018 HOD - Advance Directives and Living Will 08/30/2018 Latest Code Status on File Code Status Date Activated Date Inactivated Comments Full Code / Attempt Resuscitation 11/25/2021 6:54 AM 7:58 PM Code Status History Code Status Date Activated Date Inactivated Comments Full Code / Attempt Resuscitation 11/24/2021 9:41 PM 6:54 AM Care Teams Supervisor Rolling Room Relationship Specialty Start Date End Date Walter Reid MD [address] [place] [phone] PCP - General Internal Medicine 09/06/20 Dung Arizmendi MD [address] [place] [address] Consulting Physician Cardiology 10/06/13 Uriel Armas MD [address] [place] [address] Consulting Physician Urology 08/30/18
--- OUTSIDE RECORDS SUMMARY | 2023-10-25 12:56 | XMS_ITS | Encounter Summary ---
Author Name Unknown Organization [employer] Address [address] [place] [address] Care Team Providers Care [employer]et [employer] Name Role Phone Dung Arizmendi MD Unavailable [phone] Uriel Armas MD Unavailable [phone] Walter Reid MD Primary Care Provider [phone] Encounter Details Date Type Department Care Team (Late st Contact Info) Description 10/15/2023 Lab Requisition [facility] [address] [place] [address] Rosie Araujo, DOUBLE BASS PLAYER [address] [facility] [address] [address] Dysuria Social History Tobacco Use Types Packs/Day Years [...] Info) Description 01/24/2024 9:00 AM EDT Appointment [facility] Radiology Department [address] [place] [phone] 01/24/2024 12:40 PM EDT Office Visit [facility] [address] [place] [phone] Philomena Granados PA [address] [place] [address] documented as of this encounter Procedures Procedure Name Priority Date/Time Associated Diagnosis Comments URINE CULTURE AND SENSITIVITY STAT 10/15/2023 11:38 AM EDT Dysuria documented in this encounter Results * Urine Culture and Sensitivity (10/15/2023 11:38 AM EDT) Culture No Growth SALBADOR 10/16/2023 5:03 PM EDT [facility] Urine OTHER / Unknown 10/15/2023 1 1:38 AM EDT 10/15/2023 6:53 PM EDT Rosie Araujo DOUBLE BASS PLAYER MICROBIOLOGY - GENER AL ORDERABLES Performing Organization Address [facility]/State/ZIP Co de Phone Number [facility] Medical Director: Misael Isaacs M.D. [address] [place] [address] documented in this encounter Visit Diagnoses Diagnosis Dysuria documented in this encounter Care Teams [employer] Relationship Specialty Start Date End Date Walter Reid MD [address] [place] [phone] PCP - General Internal Medicine 09/06/20 Dung Arizmendi MD [address] [place] [phone] Consulting Physician Cardiology 10/06/13 Uriel Armas MD [address] [place] [phone] Consulting Physician Urology 08/30/18 documented as of this encounter
--- OUTSIDE RECORDS SUMMARY | 2023-10-25 12:56 | XMS_ITS | Encounter Summary ---
Author Name Unknown Organization [email or web address] Address [address] [place] [address] Care Team Providers Care Woodworking Craftsman Name Role Phone Dung Arizmendi MD Unavailable [phone] Uriel Armas MD Unavailable [phone] Walter Reid MD Primary Care Provider [phone] Encounter Details Date Type Department Care Team (Late st Contact Info) Description 12/21/2022 Lab Requisition [facility] [address] [place] [address] Uriel Duenas MD [address] [facility] [address] [place] [address] Left lower quadrant pain Social History Tobacco Use Types Packs/Day Years Used Date Smoking Tobacco: Never Smokeless Tobacco: Never Alcohol Use Standard Drinks/Week Comments No 0 (1 standard drink = 0.6 oz pur e alcohol) Sex and Gender Information Value Date Recorded Sex Assigned at Female 11/24/2021 1:44 PM EDT Gender Identity Female 11/24/2021 1:44 PM EDT Sexual Orientation Straight 12/30/2022 8: 57 AM EDT COVID-19 Exposure Response Date Recorded In the last 10 days, have yo u been in contact with someone who was confirmed or suspected to have Coronavirus/COVID-19? No / Unsure 12/21/2022 3:36 PM EDT documented as of this encounter Functional [...] Info) Description 01/24/2024 9:00 AM EDT Appointment [facility] [place] [place] [address] [place] [phone] 01/24/2024 12:40 PM EDT Office Visit [facility] [address] [place] [address] Philomena Granados PA [address] [place] [address] documented as of this encounter Procedures Procedure Name Priority Date/Time Associated Diagnosis Comments CAMPYLOBACTER BY EIA Today 12/21/2022 1:17 PM EDT Left lower quadrant pain SHIGA TOXIN Today 12/21/2022 1:17 PM EDT Left lower quadrant pain STOOL CULTURE WITH SHIGA TOXINS, CAMPYLOBACTER EIA AND SENSITIVITY IF INDICATED Today 12/21/2022 1:17 PM EDT Left lower quadrant pain documented in this encounter Results * Campylobacter by EIA (12/21/2022 1:17 PM EDT) Campylobacter by EIA Negative Negative 12/22/2022 10:39 AM EDT [facility] Stool STOOL SAMPLE OBTAINED / Unknown 12/21/2022 1:17 PM EDT 12/21/2022 7:47 PM EDT Uriel Duenas MD MICROBIOLOG Y - GENERAL ORDERABLES [facility] Medical Director: Misael Isaacs M.D. [address] [place] [place] [phone] * Shiga Toxin (Stool) (12/21/2022 1:17 PM EDT) Shiga Toxin 1 Negative Negative 12/22/2022 10:40 AM EDT [facility] Shiga Toxin 2 Negative Negative 12/22/2022 10:40 AM EDT [facility] Stool STOOL SAMPLE OBTAINED / Unknown 12/21/2022 1:17 PM EDT 12/21/2022 7:47 PM EDT Uriel Duenas MD MICROBIOLOG Y - GENERAL ORDERABLES Performing Organization Address City/[facility]/ZIP Co de Phone Number [facility] Medical Director: Misael Isaacs M.D. [address] [place] [address] * Stool Culture with Shiga Toxins, Campylobacter EIA and Sensitivity if Indicated (12/21/2022 1:17 PMEDT) Culture No Salmonella, Shigella or EC 0157 isolated SALBADOR 12/23/2022 7:06 AM EDT [facility] Stool STOOL SAMPLE OBTAINED / Unknown 12/21/2022 1:17 PM EDT 12/21/2022 7:47 PM EDT Uriel Duenas MD MICROBIOLOG Y - GENERAL ORDERABLES [facility] Medical Director: Misael Isaacs M.D. [address] [place] [address] documented in this encounter Visit Diagnoses Diagnosis Left lower quadrant pain Abdominal pain, left lower quadrant documented in this encounter Care Teams Woodworking Craftsman Relationship Specialty Start Date End Date Walter Reid MD [address] [place] [phone] PCP - General Internal Medicine 09/06/20 Dung Arizmendi MD [address] [place] [phone] Consulting Physician Cardiology 10/06/13 Uriel Armas MD [address] [place] [address] Consulting Physician Urology 08/30/18 documented as of this encounter
--- OUTSIDE RECORDS SUMMARY | 2023-10-25 12:56 | XMS_ITS | Encounter Summary ---
Author Name Unknown Organization [employer] Address [address] [place] [address] Care Team Providers Care Broom Worker Name Role Phone Addison Sena MD Primary Care Provider Dung Arizmendi MD Unavailable [phone] Uriel Armas MD Unavailable [phone] Walter Reid MD Primary Care Provider [phone] Encounter Details Date Type Department Care Team (Late st Contact Info) Description 10/06/2013 Abstract [facility] [address] [place] [address] Reny Fang RN Chest pain (Primary Dx); Varicosities of leg Social History Tobacco Use Types Packs/Day Years Used Date Smoking Tobacco: Never Sex and Gender Information Value Date Recorded Sex Assigned at Female 11/24/2021 1:44 PM EDT Gender Identity Female 11/24/2021 1:44 PM EDT Sexual Orientation Straight 12/30/2022 8: 57 AM EDT documented as of this encounter Plan of Treatment Upcoming Encounters Date Type Department Care Team (Late st Contact Info) Description 01/24/2024 9:00 AM EDT Appointment [facility] Rad[facility] Department [address] [place] [address] 01/24/2024 12:40 PM EDT Office Visit [facility] [address] [place] [address] Philomena Granados PA [address] [place] [address] documented as of this encounter Visit Diagnoses Diagnosis Chest pain- Primary Unspecified chest pain Varicosities of leg documented in this encounter Additional Health Concerns Infection Onset Date Last Indicated Resolved Time COVID-19 Rule Out (suspected) 05/02/2020 05/02/2020 05/04/2020 7:46 PM EDT C. Diff Rule Out 11/25/2021 11/25/2021 11/25/2021 7:01 AM EDT documented as of this encounter Care Teams Broom Worker Relationship Specialty Start Date End Date Addison Sena MD [address] [place] [address] PCP - General 11/08/08 09/05/20 Walter Reid MD [address] [place] [phone] PCP - General Internal Medicine 09/06/20 Dung Arizmendi MD [address] [place] [address] Consulting Physician Cardiology 10/06/13 Urile Armas MD [address] [place] [address] Consulting Physician Urology 08/30/18 documented as of this encounter
--- OUTSIDE RECORDS SUMMARY | 2023-10-25 12:56 | XMS_ITS | Clinical Summary ---
Author Name Unknown Organization [facility] [place] Address [address] [place] [address] Phone Care Team Providers Care Heavy Equipment Operator Name Role Phone Walter Reid MD Primary Care Provider [phone] Allergies Active Allergy Reactions Criticality Noted Date Comments Cefdinir 09/06/2015 Penicillins 09/06/2015 Medications Medication Sig Dispensed Refills Start Date End Date Status colchicine 0.6 MG tablet Take 0.6 mg by mouth every other day 0 Active ergocalciferol (VITAMIN D2) 22357 units capsule TK 1 C PO TWICE WEEKLY 3 03/24/2019 Active conjugated estrogens (PREMARIN) vaginal cream Insert into the vagina 0 Active hydroCHLOROthiazide (HYDRODIURIL) 25 MG tablet at bed time 0 Active lamoTRIgine (LaMICtal) 200 MG tablet at bed time 0 05/11/2013 Active pantoprazole (PROTONIX) 40 MG EC tablet 2 (two) times a day 0 05/11/2013 Active potassium chloride (KLOR-CON M10) 10 MEQ CR tablet Take 10 mEq by mouth 2 (two) times a day 0 Active Vilazodone HCl 40 MG tablet Take 20 mg by mouth 0 Active solifenacin (VESICARE) 5 MG tablet Take 5 mg by mouth 1 (one) time each day Swallow tablet whole; do not crush, chew, or split. 0 Active gabapentin (NEURONTIN) 300 MG capsule Take 300 mg by mouth 2 (two) times a day 0 Active budesonide EC (ENTOCORT EC) 3 MG 24 hr capsule Take 9 mg by mouth 1 (one) time each day 0 03/07/2021 Active Krill Oil 350 MG capsule Take by mouth 1 (one) time each day 0 Active Active Problems Problem Noted Date Diagnosed Date Chronic kidney disease 05/05/2019 Hypertensive chronic kidney disease with stage 1 through stage 4 chronic kidney disease, or unspecified chronic kidney disease 05/05/2019 Osteoarthritis 05/05/2019 Irritable bowel syndrome 05/05/2019 Gastroesophageal reflux disease 05/05/2019 Gout 05/05/2019 Gastric ulcer 05/05/2019 Esophagitis, unspecified 05/05/2019 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 CTA-Right renal artery aneurysm measuring up to 9 mm diameter. 12/14/18 Family History Medical History Relation Comments Cancer Mother Diabetes Mother Heart disease Mother Hypertension Mother Relation Status Comments Father Mother Social History Tobacco Use Types Packs/Day Years Used Date Smoking Tobacco: Never Smokeless Tobacco: Never Alcohol Use Standard Drinks/Week Comments Never 0 (1 standard drink = 0.6 oz pur e alcohol) AUDIT-C Answer Date Recorded Frequency of Alcohol Consumption Never 04/19/2019 Average Number of Drinks Not on file 019 Frequency of Binge Drinking Not on file 03/2019 Sex and Gender Information Value Date Recorded Sex Assigned at Not on file Gender Identity Not on file Sexual Orientation Not on file Last Filed Vital Signs Vital Sign Reading Time Taken Comments Blood Pressure 110/78 05/12/2021 2:20 PM EDT Pulse 83 05/12/2021 2:07 PM EDT Temperature 36.4 ??C (97.6 ??F) 05/12/2021 2:07 PM ED T Respiratory Rate 18 05/12/2021 2:07 PM EDT Oxygen Saturation 97% 05/12/2021 2:07 PM EDT Inhaled Oxygen Concentration - - Weight 93.9 kg (207 lb) 05/12/2021 2:07 PM EDT Height 175.3 cm (5' 9) 05/12/2021 2:07 PM EDT Body Mass Index 30.57 05/12/2021 2:07 PM EDT Plan of Treatment Health Maintenance Due Date Last Done Comments Breast Cancer Screening 1950 Colorectal Cancer Screening: Annual FOBT 01/21/2000 Colorectal Cancer Screening: Colonoscopy 01/21/2000 Colorectal Cancer Screening: Sigmoidoscopy 01/21/2000 Pneumococcal Vaccine: 65+ Ye ars (2 of 2 - PPSV23 or PCV20) 05/31/2020 04/05/2020 Influenza Vaccine (Season Ended) 2024 Hepatitis B Vaccine Aged Out No longe r eligible based on patient's age to complete this topic Care Teams Heavy Equipment Operator Relationship Specialty Start Date End Date Walter Reid MD [facility] [address] [place] [id number] PCP - General Internal Medicine 04/19/19
--- OUTSIDE RECORDS SUMMARY | 2023-10-25 12:56 | XMS_ITS | Continuity of Care Document ---
Author Name Unknown Organization [facility] Address [address] [place] [address] Phone Care Team Providers Care Office Services Associate Name Role Phone No Information Unavailable Unavailable [...] Diagnoses Date Provider Providers Copied on Encounter [facility], [address] [place] [address], [id number], tel:[phone] No Information No Information Established Patient-prob kelly Focused [facility], [address] [place] [address], [id number], tel:[phone] [facility] No Information Beatrice FIELD [facility]. [address] [place] [address], [id number], . tel:[phone] Referring Provider: Yemi Appiah, [facility] [address], [place], [address]. tel:[phone] [facility], [address] [place] [address], [id number], tel:[phone] [facility] Office No Information 7 Beatrice Shen. [address] [place] [address], [id number], . tel:[phone] Referring Provider: Yemi Appiah, [facility] [address], [facility]. tel:[phone] New Patient-detkeegan godfrey [facility], [address] [place] [address], [id number], tel:[phone] [facility] Office No Information 7 Yesenia Barnett. [address] [place] [address], [id number], . tel:[phone] Referring Provider: Yemi Appiah, [facility] [address], [facility]. tel:[phone] Family History Family Member Type Diagnosis Age At Onset No Information Payers Payer name Insurance type Covered republican ID Authoriza tion(s) Medicare [facility] [id number] Social History Type Description Quantity Date Captured [...]
--- OUTSIDE RECORDS SUMMARY | 2023-10-25 12:56 | XMS_ITS | Encounter Summary ---
Author Name Unknown Organization [facility] Address [address] [place] [address] Care Team Providers Care Saddle And Harness Maker Name Role Phone Dung Arizmendi MD Unavailable Uriel Armas MD Unavailable Walter Reid MD Primary Care Provider [phone] Reason for Referral * Diagnostic Imaging (Routine) - Closed Specialty Diagnoses / Procedures Referred By Angela stewart Referred To Contact Radiology Diagnoses Abnormal mammogram Procedures US Breast Limited Right Colleen Grullon MD [address] [address] Referral ID Status Reason Start Date Expiration Date Visits Re quested Visits Authorized [id number] Closed 10/01/2020 10/01/2021 1 1 Encounter Details Date Type Department Care Team (Late st Contact Info) Description 10/01/2020 Community Orders Community Practice Colleen Grullon MD [address] [id number] Abnormal mammogram (Primary Dx) Social History Tobacco Use Types Packs/Day Years [...] Exposure Response Date Recorded In the last month, have you been in contact with someone who was confirmed or suspected to have Coronavirus / COVID-19? No / Unsure 09/18/2020 11:41 AM EST documented as of this encounter Plan of Treatment Upcoming Encounters Date Type Department Care Team (Late st Contact Info) Description 01/24/2024 9:00 AM EDT Appointment [facility] [place] Department [address] [place] [phone] 01/24/2024 12:40 PM EDT Office Visit [facility] [address] [place] [address] Philomena Granados PA [address] [place], [place] [id number] documented as of this encounter Results * US Breast Limited Right (03/21/2021 11:26 AM EDT) Anatomical Region Laterality Modality Breast Right Ultrasound Impressions 03/21/2021 10:49 AM EDT IMPRESSION: Assessment is BI-RADS CATEGORY 2: benign. Management recommendation: Routine annual screening mammography which for this patient will be in August 2021. Within the next week, [facility] will mail a standard letter to the patient at the address provided during registration indicating the results of this examination. One month prior to the recommended follow up, a standard reminder letter will be mailed to the patient's provided mailing address. WSN: ?? [id number] Narrative 03/21/2021 10:49 AM EDT Indication: Abnormal mammogram. RIGHT BREAST ULTRASOUND. COMPARISON: September 18, 2020 dating back to May 09, 2010. FINDINGS: The intramammary lymph node in the right breast at the 9:00 position 7 cm from the nipple is slightly smaller on today's exam, measures 0.3 x 0.2 cm, was 0.3 x 0.3 cm. There are no suspicious ultrasound findings. Colleen Grullon MD IMG US ORDERABLES documented in this encounter Visit Diagnoses Diagnosis Abnormal mammogram- Primary Abnormal mammogram, unspecified Abnormal mammogram Abnormal mammogram, unspecified documented in this encounter Additional Health Concerns Infection Onset Date Last Indicated Resolved Time C. Diff Rule Out 11/25/2021 11/25/2021 11/25/2021 7:01 AM EDT documented as of this encounter Care Teams Saddle And Harness Maker Relationship Specialty Start Date End Date Walter Reid MD [address] [place] [phone] PCP - General Internal Medicine 09/06/20 Dung Arizmendi MD [address] [place] [address] Consulting Physician Cardiology 10/06/13 Uriel Armas MD [address] [place] [phone] Consulting Physician Urology 08/30/18 documented as of this encounter
--- OUTSIDE RECORDS SUMMARY | 2023-10-25 12:56 | XMS_ITS | Encounter Summary ---
Author Name Unknown Organization [facility] Address [address] [place] [address] [address] [place] [address] Phone Care Team Providers Care Terra Cotta Mason Name Role Phone Walter Reid MD Primary Care Provider [phone] Encounter Details Date Type Department Care Team Description 08/21/2020 Orders Only [facility] [address] [place] [address] Colleen Grullon MD [address] [place] [address] [address] [place] [address] Social History Tobacco Use Types Packs/Day Years [...] on file Sexual Orientation Not on file documented as of this encounter Plan of Treatment Not on file documented as of this encounter Procedures Procedure Name Priority Date/Time Associated Diagnosis Comments GENERAL LABS Routine 07/24/2020 documented in this encounter Results * GENERAL LABS (07/24/2020) Colleen Grullon MD LAB HISTORICAL-CONVE RSIONS-UNSOLICITED RESULTS documented in this encounter Visit Diagnoses Not on filedocumented in this encounter Care Teams Terra Cotta Mason Relationship Specialty Start Date End Date Walter Reid MD [address] [place] [address] [place] [address] PCP - General Internal Medicine 04/19/19 documented as of this encounter
--- NOTE | 2023-10-25 14:15 | ED_ITS ---
HPI - Extremity Injury (Lower) General Date Seen: 10/25/23 Chief Complaint: Extremity Pain/Injury, Lower Stated Complaint: left foot swelling, fell a week ago Time Seen by Provider: 10/25/23 12:45 Source: patient Mode of arrival: ambulatory Limitations: no limitations History of Present Illness HPI Narrative: Patient is a 73-year-old female presenting for left lower extremity swelling and left lateral malleolus pain. She states she fell a couple days ago and since then she has been having increased foot and ankle swelling. She has not been as active since the fall so she is concerned she was developing a blood clot. She does have a history of frequent falls and while she is falling more frequently she is not concerned about that is just here to have her ankle revaluated. She does notice pain is worse with walking but is able to tolerate it. Denies hitting her head. Denies chest pain, shortness of breath. No other concerns noted. Related Data Home Medications Medication Instructions Recorded Confirmed bisoprolol fumarate 5 mg tablet 5 mg PO DAILY 04/20/23 10/25/23 chlorhexidine gluconate 0.12 % 15 ml PO 3XD PRN 04/20/23 10/25/23 mouthwash famotidine 40 mg tablet 40 mg PO DAILY 04/20/23 10/25/23 gabapentin 300 mg capsule 300 mg PO BID 04/20/23 10/25/23 olmesartan 20 mg tablet 20 mg PO DAILY 04/20/23 10/25/23 vilazodone 40 mg tablet 40 mg PO QAM 04/20/23 10/25/23 lurasidone 20 mg tablet 20 mg PO DAILY 07/30/23 08/18/23 budesonide 3 mg 3 mg PO DAILY 08/18/23 10/25/23 capsule,delayed,extended release Previous Rx's Medication Instructions Recorded metronidazole 500 mg tablet 500 mg PO Q8H #15 tabs 08/19/23 Allergies Allergy/AdvReac Type Severity Reaction Status Date / Time Penicillins Allergy Intermediate Vomiting Verified 10/25/23 10:16 cefdinir Allergy Unknown Verified 10/25/23 10:16 Review of Systems Narrative: Pertinent systems reviewed and were negative unless stated HPI PFSH PFSH Surgical History (Updated 09/01/23 @ 12:06 by Peterson Purdy MD) S/P laparoscopic appendectomy ?Z90.49 - Acquired absence of other specified parts of digestive tract (ICD- 10) Exam Narrative: Exam Narrative: Const: Well-nourished, Well-developed, in mild distress Eyes: PERRL, no conjunctival injection, and symmetrical lids HENT: Atraumatic external nose and ears. Moist mucous membranes. MSK:Extremities w/o deformity, Normal Active ROM, mild swelling noted to left lower extremity worse with the left lateral malleolus with tenderness of the left lateral malleolus Skin: Warm, Dry. No rashes or lesions. Neuro: Normal Muscle tone, No focal neurological deficits. Psych: Awake, Alert, & Oriented x3. Appropriate mood and affect. Const: Vital Signs, click to edit/add: Vital Signs - 24 hr 10/25/23 10:11 Temperature 96.9 F L Pulse Rate [Right] 67 Respiratory Rate 18 Blood Pressure [Ri ght Upper Arm] 142/87 H Pulse Oximetry 98 Oxygen Delivery Me thod Room Air Course Vital Signs Vital signs: Initial Vital Signs Temperature 96.9 F L 10/25/23 10:11 Temperature Source Temporal Artery Scan 10/25/23 10:11 Pulse Rate 67 10/25/23 10:11 Pulse Rhythm Regular 10/25/23 10:11 Respiratory Rate 18 10/25/23 10:11 Blood Pressure 142/87 H 10/25/23 10:11 Blood Pressure Mean 105 10/25/23 10:11 Blood Pressure Position Sitting 10/25/23 10:11 Pulse Oximetry 98 10/25/23 10:11 Oxygen Delivery Method Room Air 10/25/23 10:11 Vital Signs Temperature 96.9 F L 10/25/23 10:11 Pulse Rate 67 10/25/23 10:11 Respiratory Rate 18 10/25/23 10:11 Blood Pressure 142/87 H 10/25/23 10:11 Pulse Oximetry 98 10/25/23 10:11 Oxygen Delivery Method Room Air 10/25/23 10:11 Temperature 96.9 F L 10/25/23 10:11 Pulse Rate 67 10/25/23 10:11 Respiratory Rate 18 10/25/23 10:11 Blood Pressure 142/87 H 10/25/23 10:11 Pulse Oximetry 98 10/25/23 10:11 Oxygen Delivery Method Room Air 10/25/23 10:11 MDM - Extremity Injury (Lower) MDM Narrative Medical decision making narrative: Patient is 71-year-old female presenting to emergency department for ankle pain and lower extremity swelling. They are concerned about a blood clot due to the swelling. I specifically asked her if she is concerned about her frequent falls and she states now states he does fall frequently at baseline and is not concerned about it at this time. Due that we will just evaluate her ankle. X- ray the ankle was ordered along with ultrasound of left lower extremity. Ultrasound showed no signs of DVT. X-ray reviewed by myself and the radiologist shows no acute fractures. There is some soft tissue swelling that was previously noted. Patient be discharged home at this time. She is agreeable to this plan. Imaging Data Venous US: Attestation: I have reviewed the pertinent imaging results. Radiologist's impression: Normal left lower extremity venous ultrasound, no sign of deep venous thrombosis. Dictated by Celina Gregory MD @ 10/25/2023 1:54:59 PM X-ray left ankle: Attestation: I have reviewed the pertinent imaging results. Radiologist's impression: Extensive enthesopathic change at the insertion of the Achilles tendon. [id number] malleolar soft tissue swelling without evidence of displaced fracture. Dictated by Nathen Mitchell MD @ 10/25/2023 2:35:46 PM Discharge Plan Discharge Clinical Impression: Ankle sprain and strain Patient Disposition: Home, Self-Care Condition: Stable Instructions: Ankle Sprain (DC) Additional Instructions: There is no signs of blood clots or fractures. He did likely sprain your ankle. Can keep it wrapped with an Desean wrap as needed for pain tolerance. Take Tylenol and ibuprofen for pain. Return to emergency department for new or worsening symptoms. Prescriptions: No Action famotidine 40 mg tablet 40 mg PO DAILY olmesartan 20 mg tablet 20 mg PO DAILY chlorhexidine gluconate 0.12 % mouthwash 15 ml PO 3XD PRN bisoprolol fumarate 5 mg tablet 5 mg PO DAILY vilazodone 40 mg tablet 40 mg PO QAM gabapentin 300 mg capsule 300 mg PO BID lurasidone 20 mg tablet 20 mg PO DAILY budesonide 3 mg capsule,delayed,extend.release 3 mg PO DAILY metronidazole 500 mg tablet 500 mg PO Q8H Qty: 15 0RF Follow Up/Referrals: Provider,Not a Local [Primary Care Provider] - Stand Alone [facility]
[2023-10-25 14:46] VITALS: RESP 16
== END 2023-10-25 14:46 | disposition home or self-care (01) ==
PROVIDERS: Emergency Provider Student in an Organized Health Care Education/Training Program
DX: S93.402A Sprain of unspecified ligament of left ankle, initial encounter (principal); W19.XXXA Unspecified fall, initial encounter
CPT/HCPCS: 73610; 93971; 99282; 99283